=== PATIENT | male | born 1995 | race Caucasian/White ===

== ENCOUNTER 2020-05-01 01:04 | Emergency (ER) | payer SELFPAY ==
[~2020-05-01] VITALS: Ht 185.4 cm; Wt 75.0 kg
--- NOTE | 2020-05-01 01:25 | NUR ---
All of patients top teeth appear to be present.
[2020-05-01] MEDS ORDERED: haloperidol lactate 5mg/ml inj IM ONE (01:40)
[2020-05-01] MEDS ORDERED: MIDAZolam 5mg/ml 2ml vial IM ONE (01:40)
[2020-05-01] MEDS ORDERED: ketamine 50 mg/ml 10ml vial IM ONE ×2 (02:00)
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
[2020-05-01] MEDS ORDERED: TETanus/Pertussis (Acell)/Diphther VAC/PF (Tdap-Adult) 0.5ml syringe IMVAC ONE (02:35)
[2020-05-01] MEDS ORDERED: LIDOcaine 1% 30ml preserv. free vial IJ ONE (02:35)
--- NOTE | 2020-05-01 03:00 | NUR ---
Dr. Gifford bedside to suture patient's lip. Per MD, patient does not need to be on a monitor, pulse ox on, sats 100% RA.
[2020-05-01 03:46] LABS: ALBUMIN 3.9 G/DL (3.4-5.0); ANION GAP 15 (8-16); BLOOD UREA NITROGEN 12 MG/DL (7-18); BUN/CREATININE RATIO 12.1 (5.4-32.0); CALCIUM 8.7 MG/DL (8.5-10.1); CHLORIDE 106 MMOL/L (99-107); CREATININE 0.99 MG/DL (0.60-1.10); ETHANOL 0.245 GM/DL (0.0-0.010); GLUCOSE 109 MG/DL (70-104); POTASSIUM 3.5 MMOL/L (3.5-5.1); SODIUM 143 MMOL/L (135-145); TOTAL CARBON DIOXIDE 22.2 MMOL/L (24-32); eGFR > 90 ML/MIN
--- NOTE | 2020-05-01 05:20 | NUR ---
[employer] wants a call when patient awakens so they may transport him to long-term
[2020-05-01 05:45] VITALS: BP 130/81
--- NOTE | 2020-05-01 05:47 | NUR ---
Patient called out but is unable to answer any questions. Patient repositioned and returned to sleep. VSS.
--- NOTE | 2020-05-01 07:30 | NUR ---
PATIENT AWAKE AND RESTRAINTS REMOVED SO HE COULE USE URINAL. COOPERATIVE BUT DROWSY. DR. JENSENFS IN TO ASSESS PATIENT. RESTRAINTS REMAIN OFF. DOZING ON VIRGILIO.
== END 2020-05-01 08:18 ==
LOC: ER 01:05
DX: S02.2XXA Fracture of nasal bones, initial encounter for closed fracture (principal); S01.511A Laceration without foreign body of lip, initial encounter; R45.1 Restlessness and agitation; F10.129 Alcohol abuse with intoxication, unspecified; Z20.3 Contact with and (suspected) exposure to rabies; X58.XXXA Exposure to other specified factors, initial encounter; Y93.89 Activity, other specified; Y92.89 Other specified places as the place of occurrence of the external cause; Y99.8 Other external cause status; Y90.0 Blood alcohol level of less than 20 mg/100 ml
CPT/HCPCS: 12011; 36415; 70450; 70486; 72125; 80048; 80320; 90471; 90715; 96372; 99291; J1630; J2250